=== PATIENT | male | born 1970 | race Caucasian/White ===

== ENCOUNTER 2016-08-26 14:29 | Emergency (ER) | payer SELFPAY ==
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
[2016-08-26] MEDS ORDERED: NO MEDICATIONS (14:46)
== END 2016-08-26 16:55 | disposition home or self-care (01) ==
LOC: SED 14:29
DX: S20.212A Contusion of left front wall of thorax, initial encounter (principal); S30.0XXA Contusion of lower back and pelvis, initial encounter; S60.222A Contusion of left hand, initial encounter; Z23 Encounter for immunization; S00.81XA Abrasion of other part of head, initial encounter; Z87.442 Personal history of urinary calculi; V49.00XA Driver injured in collision with unspecified motor vehicles in nontraffic accident, initial encounter
CPT/HCPCS: 70450; 70486; 71020; 72170; 73130; 90471; 90715; 96372; 99284; J0690